=== PATIENT | female | born 1990 ===

== ENCOUNTER 2020-07-02 08:45 | Day surgery (SDC) | payer OTHER ==
[2020-07-02] MEDS ORDERED: NAPR500T14 PO (10:43)
[2020-07-02] MEDS ORDERED: MORGIDOX100 MG PO (10:43)
== END 2020-07-02 13:55 | disposition home or self-care (01) ==
LOC: CIR.AMB 08:45
PROVIDERS: ATTEND Obstetrics & Gynecology
DX: D25.0 Submucous leiomyoma of uterus (principal); N84.0 Polyp of corpus uteri; Z20.822 Contact with and (suspected) exposure to COVID-19

== ENCOUNTER 2022-04-06 10:31 | Outpatient (CLI) | payer OTHER ==
[~2022-04-06 10:31] MED LIST: MORGIDOX100 MG PO; NAPR500T14 PO
== END 2022-04-06 10:39 | disposition home or self-care (01) ==
LOC: SONOGRAMA 10:31
PROVIDERS: ATTEND Student in an Organized Health Care Education/Training Program
DX: R92.0 Mammographic microcalcification found on diagnostic imaging of breast (principal)

== ENCOUNTER 2022-04-13 13:45 | Outpatient (CLI) | payer OTHER | END 2022-04-13 15:19 | disposition home or self-care (01) | LOC: PRENATAL 13:45 | PROVIDERS: ATTEND Obstetrics & Gynecology Maternal & Fetal Medicine | DX: O36.80X0 Pregnancy with inconclusive fetal viability, not applicable or unspecified (principal); Z36.0 Encounter for antenatal screening for chromosomal anomalies; Z3A.14 14 weeks gestation of pregnancy ==

== ENCOUNTER 2022-05-30 08:06 | Outpatient (CLI) | payer OTHER | END 2022-05-30 09:14 | disposition home or self-care (01) | LOC: PRENATAL 08:06 | PROVIDERS: ATTEND Obstetrics & Gynecology Maternal & Fetal Medicine | DX: O35.9XX0 Maternal care for (suspected) fetal abnormality and damage, unspecified, not applicable or unspecified (principal); O35.3XX0 Maternal care for (suspected) damage to fetus from viral disease in mother, not applicable or unspecified; Z3A.20 20 weeks gestation of pregnancy ==

== ENCOUNTER 2022-08-23 09:14 | Outpatient (CLI) | payer OTHER | END 2022-08-23 10:14 | disposition home or self-care (01) | LOC: PRENATAL 09:14 | PROVIDERS: ATTEND Obstetrics & Gynecology Maternal & Fetal Medicine | DX: O26.849 Uterine size-date discrepancy, unspecified trimester (principal); O36.8199 Decreased fetal movements, unspecified trimester, other fetus; Z3A.32 32 weeks gestation of pregnancy ==

== ENCOUNTER 2022-10-05 20:34 | Inpatient (IN) | payer OTHER ==
[~2022-10-05] VITALS: Ht 162.6 cm; Wt 67.6 kg
[2022-10-05] MEDS ORDERED: PRENATAL TABLE1 EAC1 PO (20:56)
== END 2022-10-08 15:16 | disposition home or self-care (01) | DRG 807 ==
LOC: OB/GYN 20:34 → LDR 20:34 → OB/GYN 10-06 01:41
PROVIDERS: ADMIT Student in an Organized Health Care Education/Training Program; ATTEND Student in an Organized Health Care Education/Training Program
PROC: 10E0XZZ Delivery of Products of Conception, External Approach (ICD-10-PCS; principal; 2022-10-05)
PROC: 0KQM0ZZ Repair Perineum Muscle, Open Approach (ICD-10-PCS; 2022-10-05)
PROC: 4A1HXCZ Monitoring of Products of Conception, Cardiac Rate, External Approach (ICD-10-PCS; 2022-10-05)
DX: O70.1 Second degree perineal laceration during delivery (principal); Z37.0 Single live birth; O99.824 Streptococcus B carrier state complicating childbirth; Z3A.38 38 weeks gestation of pregnancy; Z20.822 Contact with and (suspected) exposure to COVID-19